=== PATIENT | male | born 1990 | race African-American/Black ===

== ENCOUNTER 2023-04-19 05:06 | Emergency (ER) | payer MEDICAID ==
[~2023-04-19] VITALS: Ht 167.6 cm; Wt 88.0 kg
[2023-04-19 07:39] VITALS: BP 130/94; PULSE 99; RESP 20; TEMP 98.3; O2SAT 98
[2023-04-19] MEDS ORDERED: IBUP1TAB5 PO (07:48)
[2023-04-19] MEDS ORDERED: ACET500T58 PO (07:48)
[2023-04-19] MEDS ORDERED: PENI500T2 PO (07:48)
[2023-04-19] MEDS ORDERED: PROM1SOL4 PO (07:48)
== END 2023-04-19 07:48 | disposition home or self-care (01) ==
LOC: ER 05:06
DX: J03.90 Acute tonsillitis, unspecified (principal); B34.9 Viral infection, unspecified